=== PATIENT | female | born 1970 | race American Indian/Alaskan Native ===

== ENCOUNTER 2016-12-02 02:54 | Emergency (ER) | payer BC, OTHER ==
[2016-12-02 03:01] VITALS: BP 138/89
[2016-12-02] MEDS ORDERED: Promethazine 25 MG/ML SDV IM ONE (03:02)
[2016-12-02] MEDS ORDERED: Butorphanol 2 MG/ML SDV IM ONE (03:02)
--- NOTE | 2016-12-02 03:17 | EDM.PDOC ---
ED HPI HEADACHE COMPLAINT - General Chief Complaint: Headache Stated Complaint: MIGRAINE Time Seen by Provider: 12/02/16 03:05 Source of Information: Reports: Patient History Limitations: Reports: No limitations - History of Present Illness INITIAL COMMENTS - FREE TEXT/NARRATIVE: c/o usual migraine headache since friday up back of head and left side, nasuea no vomiting. Tiggered by activity with grandkids. Has tried Maxalt and excedrine migraine without relief. Timing/Duration: Reports: day(s): Location: Reports: occipital, parietal, left Severity: Reports: similar to past headaches Context: Reports: other - Related Data Allergies/ADRs: Allergies Allergy/AdvReac Type Severity Reaction Status Date / Time morphine Allergy Difficulty Verified 12/02/16 02:57 Breathing prochlorperazine edisylate Allergy Difficulty Verified 12/02/16 02:57 [From Compazine] Breathing prochlorperazine maleate Allergy Difficulty Verified 12/02/16 02:57 [From Compazine] Breathing sumatriptan [From Imitrex] Allergy Chest Pain Verified 12/02/16 02:57 sumatriptan succinate Allergy Chest Pain Verified 12/02/16 02:57 [From Imitrex] Home Meds: Home Meds Metoprolol Tartrate 100 mg PO DAILY 08/01/13 [History] Rizatriptan [Maxalt DRILLING SUPERVISOR] 10 mg PO ASDIRECTED PRN 08/01/13 [History] metFORMIN [metFORMIN XR] 250 mg PO BIDM 08/01/13 [History] Acetaminophen/Caffeine [Excedrin Tension Headache] 2 tab PO ASDIRECTED PRN 07/17 [History] diphenhydrAMINE [Benadryl] 50 mg PO ASDIRECTED PRN 07/17/14 [History] atorvaSTATin Calcium [Atorvastatin Calcium] 20 mg PO DAILY 08/05/14 [History] Lisinopril 20 mg PO DAILY 10/08/14 [History] Past Medical History - Past Health History Medical/Surgical History: Denies Medical/Surgical History HEENT History: Reports: None Cardiovascular History: Reports: High cholesterol, Hypertension Respiratory History: Reports: Other (see below) Other Respiratory History: uses C-PAP Gastrointestinal History: Reports: None Genitourinary History: Reports: Renal calculus 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: , Other (see below) Other OB/BYN History: 2 c-sect Musculoskeletal History: Reports: None Neurological History: Reports: Migraines Psychiatric History: Reports: None Endocrine/Metabolic History: Reports: Diabetes, type II Hematologic History: Reports: None Immunologic History: Reports: None Oncologic (Cancer) History: Reports: None Dermatologic History: Reports: None - Infectious Disease History Infectious Disease History: Reports: Chicken pox - Past Surgical History HEENT Surgical History: Reports: None Cardiovascular Surgical History: Reports: None GI Surgical History: Reports: Appendectomy, Cholecystectomy Female Surgical History: Reports: section, Hysterectomy Other Female Surgeries/Procedures: Partial Musculoskeletal Surgical History: Reports: None Social & Family History - Family History Family Medical History: Noncontributory - Tobacco Use Smoking Status *Q: Current Every Day Smoker Years of Tobacco use: 20 Packs/Tins Daily: 0.3 Used Tobacco, but Quit: No Month Tobacco Last Used: january Second Hand Smoke Exposure: Yes - Caffeine Use Caffeine Use: Reports: Soda - Alcohol Use Days Per Week of Alcohol Use: 0 - Recreational Drug Use Recreational Drug Use: No Drug Use in Last 12 Months: No ED ROS GENERAL - Review of Systems Review Of Systems: See Below Constitutional: Reports: no symptoms HEENT: Reports: No symptoms, Other (sensitive to lights.) Respiratory: Reports: No Symptoms Cardiovascular: Reports: No symptoms GI/Abdominal: Reports: Nausea. Denies: Vomiting Neurological: Reports: Headache - Physical Exam Exam: See Below Exam Limited By: No limitations General Appearance: alert, mild distress Eye Exam: bilateral eye: EOMI, PERRL Ears: normal external exam Nose: normal inspection Throat/Mouth: Normal inspection Head Exam: atraumatic, normocephalic Neck: normal inspection, supple, non-tender, full range of motion Respiratory/Chest: no respiratory distress, lungs clear Cardiovascular: normal peripheral pulses, regular rate, rhythm Neuro Exam (Abbreviated): alert, oriented, normal cognition, no motor/sensory deficits Back Exam: full range of motion Psychiatric: normal affect, normal mood Skin Exam: Warm, Dry, Intact, Normal color Course - Vital Signs Last Recorded V/S: Last Vital Signs Temp 96.6 F 12/02/16 02:59 Pulse 117 H 12/02/16 02:59 Resp 18 12/02/16 02:59 BP 138/89 12/02/16 02:59 Pulse Ox 98 12/02/16 02:59 - Orders/Labs/Meds Meds: Medications Discontinued Medications Generic Name Dose Route Start Last Admin Trade Name Iman PRN Reason Stop Dose Admin Butorphanol Tartrate 2 mg 12/02/16 03:02 12/02/16 03:13 Stadol IM 12/02/16 03:03 2 mg ONETIME ONE Administration Promethazine HCl 25 mg 12/02/16 03:02 12/02/16 03:13 Phenergan IM 12/02/16 03:03 25 mg ONETIME ONE Administration Departure - Departure Time of Disposition: 03:25 Disposition: Home, Self-Care 01 Condition: good Clinical Impression: Migraine Instructions: Recurrent Migraine Headache, [id number] Forms: ED Department Discharge Additional Instructions: rest increase fluids follow up as needed
== END 2016-12-02 03:26 | disposition home or self-care (01) ==
LOC: DL.ED 02:54
DX: G43.909 Migraine, unspecified, not intractable, without status migrainosus (principal); E78.00 Pure hypercholesterolemia, unspecified; I10 Essential (primary) hypertension; E11.9 Type 2 diabetes mellitus without complications; F17.210 Nicotine dependence, cigarettes, uncomplicated; Z79.84 Long term (current) use of oral hypoglycemic drugs; Z79.899 Other long term (current) drug therapy; Z90.49 Acquired absence of other specified parts of digestive tract; Z90.710 Acquired absence of both cervix and uterus; Z88.8 Allergy status to other drugs, medicaments and biological substances
CPT/HCPCS: 96372; 99283; J0595; J2550

== ENCOUNTER 2017-05-11 19:53 | Emergency (ER) | payer SELFPAY ==
[2017-05-11 20:06] VITALS: BP 180/95
[2017-05-11] MEDS ORDERED: Cephalexin 500 MG Cap PO ONE (21:45)
--- NOTE | 2017-05-11 21:45 | EDM.PDOC ---
ED HPI GENERAL MEDICAL PROBLEM - General Chief Complaint: ENT Problem Stated Complaint: BAD HEADACHE,PAIN IN TOOTH [id number] Time Seen by Provider: 05/11/17 21:42 Source of Information: Reports: Patient - History of Present Illness INITIAL COMMENTS - FREE TEXT/NARRATIVE: Tooth pulled on , also sore throat with dental pain and migraine headache. Minimal improvement with tylenol. Noted after tooth pulled foul taste in mouth and bad odor, slight improvement now. 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 CLERK: Reports: Acetaminophen, Other (see below) Other Treatments CUSTOMER SECURITY CLERK: ibuprofen Head Pain Score (Numeric/FACES): 3 - Related Data Allergies Allergy/AdvReac Type Severity Reaction Status Date / Time morphine Allergy Difficulty Verified 05/11/17 19:58 Breathing prochlorperazine edisylate Allergy Difficulty Verified 05/11/17 19:58 [From Compazine] Breathing prochlorperazine maleate Allergy Difficulty Verified 05/11/17 19:58 [From Compazine] Breathing sumatriptan [From Imitrex] Allergy Chest Pain Verified 05/11/17 19:58 sumatriptan succinate Allergy Chest Pain Verified 05/11/17 19:58 [From Imitrex] Home Meds: Home Meds Metoprolol Tartrate 100 mg PO DAILY 08/01/13 [History] Rizatriptan [Maxalt CAR WHACKER] 10 mg PO ASDIRECTED PRN 08/01/13 [History] metFORMIN [metFORMIN XR] 250 mg PO BIDM 08/01/13 [History] Acetaminophen/Caffeine [Excedrin Tension Headache] 2 tab PO ASDIRECTED PRN 07/17 [History] diphenhydrAMINE [Benadryl] 50 mg PO ASDIRECTED PRN 07/17/14 [History] atorvaSTATin Calcium [Atorvastatin Calcium] 20 mg PO DAILY 08/05/14 [History] Lisinopril 20 mg PO DAILY 10/08/14 [History] Past Medical History - Past Health History Medical/Surgical History: Denies Medical/Surgical History HEENT History: Reports: None Cardiovascular History: Reports: High Cholesterol, Hypertension Respiratory History: Reports: Other (See Below) Other Respiratory History: uses C-PAP Gastrointestinal History: Reports: None Genitourinary History: Reports: Renal Calculus 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 OB/BYN History: 2 c-sect Musculoskeletal History: Reports: None Neurological History: Reports: Migraines Psychiatric History: Reports: None Endocrine/Metabolic History: Reports: Diabetes, Type II Hematologic History: Reports: None Immunologic History: Reports: None Oncologic (Cancer) History: Reports: None Dermatologic History: Reports: None - Infectious Disease History Infectious Disease History: Reports: Chicken Pox - Past Surgical History HEENT Surgical History: Reports: None GI Surgical History: Reports: Appendectomy, Cholecystectomy Female Surgical History: Reports: Section, Hysterectomy Musculoskeletal Surgical History: Reports: None Social & Family History - Family History Family Medical History: Noncontributory - Tobacco Use Smoking Status *Q: Current Every Day Smoker Years of Tobacco use: 20 Packs/Tins Daily: 0.4 Used Tobacco, but Quit: No Month Tobacco Last Used: january Second Hand Smoke Exposure: Yes - Caffeine Use Caffeine Use: Reports: Tea - Alcohol Use Days Per Week of Alcohol Use: 0 - Recreational Drug Use Recreational Drug Use: No Drug Use in Last 12 Months: No ED ROS ENT - Review of Systems Review Of Systems: See Below Constitutional: Denies: Fever, Chills HEENT: Reports: Dental Pain, Throat Pain Respiratory: Reports: No Symptoms Cardiovascular: Reports: No Symptoms GI/Abdominal: Reports: Nausea : Reports: No Symptoms Neurological: Reports: Headache ED EXAM, ENT - Physical Exam Exam: See Below Exam Limited By: No Limitations General Appearance: Alert, Mild Distress Eye Exam: Bilateral Eye: PERRL Ears: Normal External Exam, Normal TMs Nose: Normal Inspection Mouth/Throat: Dental Pain, Dental Tenderness, Tonsillar Erythema Head: Atraumatic, Normocephalic Respiratory/Chest: No Respiratory Distress, Lungs Clear, Normal Breath Sounds Cardiovascular: Normal Peripheral Pulses, Regular Rate, Rhythm, No Edema GI/Abdominal: Normal Bowel Sounds (Female) Exam: Normal External Exam Extremities: Normal Inspection, Normal Range of Motion Neurological: Alert, Oriented, Normal Cognition Psychiatric: Normal Affect, Normal Mood Skin: Warm, Dry, Intact, Normal Color Course - Vital Signs Last Recorded V/S: Last Vital Signs Temp 97.8 F 05/11/17 20:04 Pulse 73 05/11/17 20:04 Resp 18 05/11/17 20:04 BP 180/95 H 05/11/17 20:04 Pulse Ox 99 05/11/17 20:04 - Orders/Labs/Meds Meds: Medications Discontinued Medications Generic Name Dose Route Start Last Admin Trade Name Iman PRN Reason Stop Dose Admin Butorphanol Tartrate 1 mg 05/11/17 21:47 05/11/17 21:55 Stadol IM 05/11/17 21:48 1 mg ONETIME ONE Administration Cephalexin 500 mg 05/11/17 21:45 05/11/17 21:54 Keflex PO 05/11/17 21:46 500 mg ONETIME ONE Administration Departure - Departure Time of Disposition: 21:49 Disposition: Home, Self-Care 01 Condition: Fair Clinical Impression: Dental abscess, Migraine URI (upper respiratory infection) Qualifiers: URI type: unspecified viral URI Qualified Code(s): J06.9 - Acute upper respiratory infection, unspecified - Discharge Information Instructions: Dental Car[facility] Forms: ED Department Discharge Additional Instructions: rest keflex 500mg one 4 times daily for one week follow up with dentist this week increase fluids
[2017-05-11] MEDS ORDERED: Butorphanol 2 MG/ML SDV IM ONE (21:47)
== END 2017-05-11 22:14 | disposition home or self-care (01) ==
LOC: DL.ED 19:53
DX: K04.7 Periapical abscess without sinus (principal); G43.909 Migraine, unspecified, not intractable, without status migrainosus; J06.9 Acute upper respiratory infection, unspecified; F17.210 Nicotine dependence, cigarettes, uncomplicated; I10 Essential (primary) hypertension; E78.00 Pure hypercholesterolemia, unspecified; E11.9 Type 2 diabetes mellitus without complications; Z87.442 Personal history of urinary calculi; Z90.49 Acquired absence of other specified parts of digestive tract; Z90.710 Acquired absence of both cervix and uterus; Z79.84 Long term (current) use of oral hypoglycemic drugs; Z79.899 Other long term (current) drug therapy; Z88.5 Allergy status to narcotic agent; Z88.8 Allergy status to other drugs, medicaments and biological substances
CPT/HCPCS: 87081; 87430; 96372; 99282; A9270; J0595

== ENCOUNTER 2017-12-14 22:20 | Emergency (ER) | payer SELFPAY ==
[2017-12-14 22:24] VITALS: BP 178/84
[2017-12-14] MEDS ORDERED: Promethazine 25 MG/ML SDV IM ONE (22:26)
[2017-12-14] MEDS ORDERED: Butorphanol 2 MG/ML SDV IM ONE (22:26)
--- NOTE | 2017-12-14 22:29 | EDM.PDOC ---
ED HPI GENERAL MEDICAL PROBLEM - General Chief Complaint: Headache Stated Complaint: MIGRAINE [id number] Time Seen by Provider: 12/14/17 22:27 Source of Information: Reports: Patient History Limitations: Reports: No Limitations - History of Present Illness INITIAL COMMENTS - FREE TEXT/NARRATIVE: c/o recurrent migraine from usual stress and been working more also. Headache Pain Score (Numeric/FACES): 7 - Related Data Allergies Allergy/AdvReac Type Severity Reaction Status Date / Time morphine Allergy Difficulty Verified 12/14/17 22:28 Breathing prochlorperazine edisylate Allergy Difficulty Verified 12/14/17 22:28 [From Compazine] Breathing prochlorperazine maleate Allergy Difficulty Verified 12/14/17 22:28 [From Compazine] Breathing sumatriptan [From Imitrex] Allergy Chest Pain Verified 12/14/17 22:28 sumatriptan succinate Allergy Chest Pain Verified 12/14/17 22:28 [From Imitrex] Home Meds: Home Meds Metoprolol Tartrate 100 mg PO DAILY 08/01/13 [History] Rizatriptan [Maxalt CONTRACTOR FIELD HAULING] 10 mg PO ASDIRECTED PRN 08/01/13 [History] metFORMIN [metFORMIN XR] 250 mg PO BIDM 08/01/13 [History] Acetaminophen/Caffeine [Excedrin Tension Headache] 2 tab PO ASDIRECTED PRN 07/17 [History] diphenhydrAMINE [Benadryl] 50 mg PO ASDIRECTED PRN 07/17/14 [History] atorvaSTATin Calcium [Atorvastatin Calcium] 20 mg PO DAILY 08/05/14 [History] Lisinopril 20 mg PO DAILY 10/08/14 [History] Past Medical History - Past Health History Medical/Surgical History: Denies Medical/Surgical History HEENT History: Reports: None Cardiovascular History: Reports: High Cholesterol, Hypertension Respiratory History: Reports: Other (See Below) Other Respiratory History: uses C-PAP Gastrointestinal History: Reports: None Genitourinary History: Reports: Renal Calculus 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: Other OB/BYN History: 2 c-sect Musculoskeletal History: Reports: None Neurological History: Reports: Migraines Psychiatric History: Reports: None Endocrine/Metabolic History: Reports: Diabetes, Type II Hematologic History: Reports: None Immunologic History: Reports: None Oncologic (Cancer) History: Reports: None Dermatologic History: Reports: None - Infectious Disease History Infectious Disease History: Reports: Chicken Pox - Past Surgical History HEENT Surgical History: Reports: None GI Surgical History: Reports: Appendectomy, Cholecystectomy Female Surgical History: Reports: Section, Hysterectomy Musculoskeletal Surgical History: Reports: None Social & Family History - Family History Family Medical History: Noncontributory - Tobacco Use Smoking Status *Q: Current Every Day Smoker Years of Tobacco use: 20 Packs/Tins Daily: 0.4 Used Tobacco, but Quit: No Month/Year Tobacco Last Used: january Second Hand Smoke Exposure: Yes - Caffeine Use Caffeine Use: Reports: Tea - Alcohol Use Days Per Week of Alcohol Use: 0 - Recreational Drug Use Recreational Drug Use: No Drug Use in Last 12 Months: No ED ROS GENERAL - Review of Systems Review Of Systems: ROS reveals no pertinent complaints other than HPI. - Physical Exam Exam: See Below Exam Limited By: No Limitations General Appearance: Alert, WD/WN, Mild Distress, Other (tearful) Eye Exam: Bilateral Eye: PERRL (pupils ER @ 4mm) Ears: Hearing Grossly Normal Throat/Mouth: Normal Voice, No Airway Compromise Head Exam: Atraumatic Neck: Non-Tender, Full Range of Motion Respiratory/Chest: No Respiratory Distress Cardiovascular: Regular Rate, Rhythm GI/Abdominal: Soft, Non-Tender Neuro Exam (Abbreviated): Alert, Oriented, Normal Cognition, Normal Gait, No Motor/Sensory Deficits Psychiatric: Tearful Skin Exam: Warm, Dry, Normal Color Course - Vital Signs Last Recorded V/S: Last Vital Signs Temp 36.6 C 12/14/17 22:23 Pulse 78 12/14/17 22:23 Resp 16 12/14/17 22:23 BP 178/84 H 12/14/17 22:23 Pulse Ox 100 12/14/17 22:23 - Orders/Labs/Meds Meds: Medications Discontinued Medications Generic Name Dose Route Start Last Admin Trade Name Freq PRN Reason Stop Dose Admin Butorphanol Tartrate 2 mg 12/14/17 22:26 12/14/17 22:34 Stadol IM 12/14/17 22:27 2 mg ONETIME ONE Administration Promethazine HCl 25 mg 12/14/17 22:26 12/14/17 22:32 Phenergan IM 12/14/17 22:27 25 mg ONETIME ONE Administration Departure - Departure Time of Disposition: 22:50 Disposition: Home, Self-Care 01 Condition: Good Clinical Impression: Migraine without aura, Episodic tension-type headache - Discharge Information Instructions: Recurrent Migraine Headache, [id number] Forms: ED Department Discharge Additional Instructions: 1) rest and sleep as much as possible 2) follow up at clinic 3) recheck as needed
== END 2017-12-14 22:51 | disposition home or self-care (01) ==
LOC: DL.ED 22:20
DX: G44.219 Episodic tension-type headache, not intractable (principal); G43.009 Migraine without aura, not intractable, without status migrainosus; E78.00 Pure hypercholesterolemia, unspecified; I10 Essential (primary) hypertension; E11.9 Type 2 diabetes mellitus without complications; F17.210 Nicotine dependence, cigarettes, uncomplicated; Z88.5 Allergy status to narcotic agent; Z88.8 Allergy status to other drugs, medicaments and biological substances; Z79.899 Other long term (current) drug therapy
CPT/HCPCS: 96372; 99283; J0595; J2550

== ENCOUNTER 2018-01-31 19:32 | Emergency (ER) | payer SELFPAY ==
[2018-01-31 19:42] VITALS: BP 186/97
[2018-01-31] MEDS ORDERED: Butorphanol 2 MG/ML SDV IM ONE (19:52)
[2018-01-31] MEDS ORDERED: Promethazine 25 MG/ML SDV IM ONE (19:52)
--- NOTE | 2018-01-31 19:57 | EDM.PDOC ---
ED HPI GENERAL MEDICAL PROBLEM - General Chief Complaint: Headache Stated Complaint: MIGRAINE Time Seen by Provider: 01/31/18 19:53 Source of Information: Reports: Patient History Limitations: Reports: No Limitations - History of Present Illness INITIAL COMMENTS - FREE TEXT/NARRATIVE: long h/o exac tension migraine with N/V. Head Pain Score (Numeric/FACES): 8 - Related Data Allergies Allergy/AdvReac Type Severity Reaction Status Date / Time morphine Allergy Difficulty Verified 12/14/17 22:28 Breathing prochlorperazine edisylate Allergy Difficulty Verified 12/14/17 22:28 [From Compazine] Breathing prochlorperazine maleate Allergy Difficulty Verified 12/14/17 22:28 [From Compazine] Breathing sumatriptan [From Imitrex] Allergy Chest Pain Verified 12/14/17 22:28 sumatriptan succinate Allergy Chest Pain Verified 12/14/17 22:28 [From Imitrex] Home Meds: Home Meds Metoprolol Tartrate 100 mg PO DAILY 08/01/13 [History] Rizatriptan [Maxalt AMBULANCE DISPATCHER] 10 mg PO ASDIRECTED PRN 08/01/13 [History] metFORMIN [metFORMIN XR] 250 mg PO BIDM 08/01/13 [History] Acetaminophen/Caffeine [Excedrin Tension Headache] 2 tab PO ASDIRECTED PRN 07/17 [History] diphenhydrAMINE [Benadryl] 50 mg PO ASDIRECTED PRN 07/17/14 [History] atorvaSTATin Calcium [Atorvastatin Calcium] 20 mg PO DAILY 08/05/14 [History] Past Medical History - Past Health History Medical/Surgical History: Denies Medical/Surgical History HEENT History: Reports: None Cardiovascular History: Reports: High Cholesterol, Hypertension Respiratory History: Reports: Other (See Below) Other Respiratory History: uses C-PAP Gastrointestinal History: Reports: None Genitourinary History: Reports: Renal Calculus 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 OB/BYN History: 2 c-sect Musculoskeletal History: Reports: None Neurological History: Reports: Migraines Psychiatric History: Reports: None Endocrine/Metabolic History: Reports: Diabetes, Type II Hematologic History: Reports: None Immunologic History: Reports: None Oncologic (Cancer) History: Reports: None Dermatologic History: Reports: None - Infectious Disease History Infectious Disease History: Reports: Chicken Pox - Past Surgical History HEENT Surgical History: Reports: None GI Surgical History: Reports: Appendectomy, Cholecystectomy Female Surgical History: Reports: Section, Hysterectomy Musculoskeletal Surgical History: Reports: None Social & Family History - Family History Family Medical History: Noncontributory - Tobacco Use Smoking Status *Q: Never Smoker - Caffeine Use Caffeine Use: Reports: Tea - Recreational Drug Use Recreational Drug Use: No ED ROS GENERAL - Review of Systems Review Of Systems: ROS reveals no pertinent complaints other than HPI. - Physical Exam Exam: See Below Exam Limited By: No Limitations General Appearance: Alert, WD/WN, Mild Distress, Other (migraine) Eye Exam: Bilateral Eye: PERRL (pupils ER @ 4mm) Ears: Hearing Grossly Normal Throat/Mouth: Normal Voice, No Airway Compromise Head Exam: Atraumatic Neck: Non-Tender, Full Range of Motion Respiratory/Chest: No Respiratory Distress Cardiovascular: Regular Rate, Rhythm GI/Abdominal: Soft, Non-Tender Neuro Exam (Abbreviated): Alert, Oriented, Normal Cognition, Normal Gait, No Motor/Sensory Deficits Psychiatric: Tearful Skin Exam: Warm, Dry, Normal Color Course - Vital Signs Last Recorded V/S: Last Vital Signs Temp 36.7 C 01/31/18 19:41 Pulse 78 01/31/18 19:41 Resp 16 01/31/18 19:41 BP 186/97 H 01/31/18 19:41 Pulse Ox 96 01/31/18 19:41 - Orders/Labs/Meds Orders: Active Orders 24 hr Category Date Time Status Butorphanol [Stadol] Med 01/31/18 19:52 Once 2 mg IM ONETIME ONE Promethazine [Phenergan] Med 01/31/18 19:52 Once 25 mg IM ONETIME ONE Medication Orders Butorphanol Tartrate (Stadol) 2 mg IM ONETIME ONE Stop: 01/31/18 19:53 Promethazine HCl (Phenergan) 25 mg IM ONETIME ONE Stop: 01/31/18 19:53 Meds: Medications Generic Name Dose Route Start Last Admin Trade Name Freq PRN Reason Stop Dose Admin Butorphanol Tartrate 2 mg 01/31/18 19:52 Stadol IM 01/31/18 19:53 ONETIME ONE Promethazine HCl 25 mg 01/31/18 19:52 Phenergan IM 01/31/18 19:53 ONETIME ONE Departure - Departure Time of Disposition: 19:56 Disposition: Home, Self-Care 01 Condition: Good Clinical Impression: Migraine, Tension-type headache - Discharge Information Instructions: Migraine Headache, [id number] Additional Instructions: 1) rest and avoid vigorous activity next 48 hours 2) follow up at clinic - My Orders Last 24 Hours: My Active Orders 01/31/18 19:52 Butorphanol [Stadol] 2 mg IM ONETIME ONE Promethazine [Phenergan] 25 mg IM ONETIME ONE - Assessment/Plan Last 24 Hours: My Active Orders 01/31/18 19:52 Butorphanol [Stadol] 2 mg IM ONETIME ONE Promethazine [Phenergan] 25 mg IM ONETIME ONE
== END 2018-01-31 20:04 | disposition home or self-care (01) ==
LOC: DL.ED 19:32
DX: G44.209 Tension-type headache, unspecified, not intractable (principal); G43.909 Migraine, unspecified, not intractable, without status migrainosus; E78.00 Pure hypercholesterolemia, unspecified; I10 Essential (primary) hypertension; E11.9 Type 2 diabetes mellitus without complications; Z88.5 Allergy status to narcotic agent; Z88.8 Allergy status to other drugs, medicaments and biological substances; Z79.899 Other long term (current) drug therapy; Z79.84 Long term (current) use of oral hypoglycemic drugs
CPT/HCPCS: 96372; 99283; J0595; J2550

== ENCOUNTER 2018-10-19 01:48 | Emergency (ER) | payer SELFPAY | END 2018-10-19 04:00 | disposition left against medical advice (07) | LOC: DL.ED 01:48 | DX: Z53.21 Procedure and treatment not carried out due to patient leaving prior to being seen by health care provider (principal) | CPT/HCPCS: 99281 ==

== ENCOUNTER 2020-04-30 04:20 | Emergency (ER) | payer SELFPAY ==
[2020-04-30 04:27] VITALS: BP 120/84; PULSE 80
[2020-04-30] MEDS ORDERED: Butorphanol 2 MG/ML SDV IM ONE (04:34)
[2020-04-30] MEDS ORDERED: Promethazine 25 MG/ML SDV IM ONE (04:34)
--- NOTE | 2020-04-30 04:38 | EDM.PDOC ---
ED HPI GENERAL MEDICAL PROBLEM - General Chief Complaint: Headache Stated Complaint: MIGRAINE SINCE YESTERDAY Time Seen by Provider: 04/30/20 04:35 Source of Information: Reports: Patient History Limitations: Reports: No Limitations - History of Present Illness INITIAL COMMENTS - FREE TEXT/NARRATIVE: long h/o migraines, present episode since yesterday. 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] 10 mg PO ASDIRECTED PRN 08/01/13 [History] metFORMIN [metFORMIN XR] 500 mg PO BIDM 08/01/13 [History] Acetaminophen/Caffeine [Excedrin Tension Headache] 2 tab PO ASDIRECTED PRN 07/17/14 [History] diphenhydrAMINE [Benadryl] 50 mg PO ASDIRECTED PRN 07/17/14 [History] atorvaSTATin Calcium [Atorvastatin Calcium] 40 mg PO DAILY 08/05/14 [History] Spironolactone [Aldactone] 25 mg PO DAILY 08/29/18 [History] Valsartan 160 mg PO DAILY 08/29/18 [History] Venlafaxine HCl [Venlafaxine ER] 75 mg PO DAILY 08/29/18 [History] Past Medical History - Past Health History Medical/Surgical History: Denies Medical/Surgical History HEENT History: Reports: None Cardiovascular History: Reports: High Cholesterol, Hypertension Respiratory History: Reports: Other (See Below) Other Respiratory History: uses C-PAP Gastrointestinal History: Reports: None Genitourinary History: Reports: Renal Calculus 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 FITTER History: Reports: Other FLASK FITTER History: 2 c-sect Musculoskeletal History: Reports: None Neurological History: Reports: Migraines Psychiatric History: Reports: None Endocrine/Metabolic History: Reports: Diabetes, Type II Hematologic History: Reports: None Immunologic History: Reports: None Oncologic (Cancer) History: Reports: None Dermatologic History: Reports: None - Infectious Disease History Infectious Disease History: Reports: Chicken Pox - Past Surgical History HEENT Surgical History: Reports: None GI Surgical History: Reports: Appendectomy, Cholecystectomy Female Surgical History: Reports: Section, Hysterectomy Musculoskeletal Surgical History: Reports: None Social & Family History - Family History Family Medical History: Noncontributory - Tobacco Use Smoking Status *Q: Current Every Day Smoker Years of Tobacco use: 20 Packs/Tins Daily: 0.3 Second Hand Smoke Exposure: Yes - Caffeine Use Caffeine Use: Reports: Soda - Recreational Drug Use Recreational Drug Use: No ED ROS GENERAL - Review of Systems Review Of Systems: Comprehensive ROS is negative, except as noted in HPI. - Physical Exam Exam: See Below Exam Limited By: No Limitations General Appearance: Alert, WD/WN, Mild Distress, Moderate Distress, Other (discomfort) Eye Exam: Bilateral Eye: PERRL (pupils ER @ 4mm) Ears: Hearing Grossly Normal Throat/Mouth: Normal Voice, No Airway Compromise Head Exam: Atraumatic Neck: Non-Tender, Full Range of Motion Respiratory/Chest: No Respiratory Distress Cardiovascular: Regular Rate, Rhythm GI/Abdominal: Soft, Non-Tender (Female) Exam: Deferred Rectal (Female) Exam: Deferred Neuro Exam (Abbreviated): Alert, Oriented, Normal Cognition, Normal Gait, No Motor/Sensory Deficits Psychiatric: Tearful Skin Exam: Warm, Dry, Normal Color Course - Vital Signs Last Recorded V/S: Last Vital Signs Temp 36.1 C 04/30/20 04:23 Pulse 80 04/30/20 04:23 Resp 16 04/30/20 04:23 BP 120/84 04/30/20 04:23 Pulse Ox 98 04/30/20 04:23 - Orders/Labs/Meds Orders: Active Orders 24 hr Category Date Time Status Butorphanol [Stadol] Med 04/30/20 04:34 Once 2 mg IM ONETIME ONE Promethazine [Phenergan] Med 04/30/20 04:34 Once 25 mg IM ONETIME ONE Medication Orders Butorphanol Tartrate (Stadol) 2 mg IM ONETIME ONE Stop: 04/30/20 04:35 Promethazine HCl (Phenergan) 25 mg IM ONETIME ONE Stop: 04/30/20 04:35 Meds: Medications Generic Name Dose Route Start Last Admin Trade Name Iman RODRIGUEZ Reason Stop Dose Admin Butorphanol Tartrate 2 mg 04/30/20 04:34 Stadol IM 04/30/20 04:35 ONETIME ONE Promethazine HCl 25 mg 04/30/20 04:34 Phenergan IM 04/30/20 04:35 ONETIME ONE Departure - Departure Time of Disposition: 04:37 Disposition: Home, Self-Care 01 Condition: Good Clinical Impression: Migraine with aura - Discharge Information Instructions: Migraine Headache, [id number] Additional Instructions: 1) rest 2) avoid bright lights and loud noises 3) follow up at clinic Sepsis Event Note (ED) - Evaluation Sepsis Screening Result: No Definite Risk - Focused Exam Vital Signs: Vital Signs Temp Pulse Resp BP Pulse Ox 04/30/20 04:23 36.1 C 80 16 120/84 98 - My Orders Last 24 Hours: My Active Orders 04/30/20 04:34 Butorphanol [Stadol] 2 mg IM ONETIME ONE Promethazine [Phenergan] 25 mg IM ONETIME ONE - Assessment/Plan Last 24 Hours: My Active Orders 04/30/20 04:34 Butorphanol [Stadol] 2 mg IM ONETIME ONE Promethazine [Phenergan] 25 mg IM ONETIME ONE
== END 2020-04-30 04:56 | disposition home or self-care (01) ==
LOC: DL.ED 04:20
DX: G43.109 Migraine with aura, not intractable, without status migrainosus (principal); I10 Essential (primary) hypertension; E78.00 Pure hypercholesterolemia, unspecified; E11.9 Type 2 diabetes mellitus without complications; F17.210 Nicotine dependence, cigarettes, uncomplicated; Z88.5 Allergy status to narcotic agent; Z88.8 Allergy status to other drugs, medicaments and biological substances; Z79.84 Long term (current) use of oral hypoglycemic drugs; Z79.899 Other long term (current) drug therapy
CPT/HCPCS: 96372; 99283; J0595; J2550

== ENCOUNTER 2020-08-06 02:45 | Emergency (ER) | payer SELFPAY ==
[2020-08-06] MEDS ORDERED: Promethazine 25 MG/ML SDV IM ONE (02:49)
[2020-08-06] MEDS ORDERED: Butorphanol 2 MG/ML SDV IM ONE (02:49)
--- NOTE | 2020-08-06 02:51 | EDM.PDOC ---
ED HPI GENERAL MEDICAL PROBLEM - General Chief Complaint: Headache Stated Complaint: MIGRAINE Time Seen by Provider: 08/06/20 02:49 Source of Information: Reports: Patient History Limitations: Reports: No Limitations - History of Present Illness INITIAL COMMENTS - FREE TEXT/NARRATIVE: recurrent h/o migraines Headache Pain Score (Numeric/FACES): 8 - Related Data Allergies Allergy/AdvReac Type Severity Reaction Status Date / Time morphine Allergy Difficulty Verified 08/06/20 02:51 Breathing prochlorperazine edisylate Allergy Difficulty Verified 08/06/20 02:51 [From Compazine] Breathing prochlorperazine maleate Allergy Difficulty Verified 08/06/20 02:51 [From Compazine] Breathing sumatriptan [From Imitrex] Allergy Chest Pain Verified 08/06/20 02:51 sumatriptan succinate Allergy Chest Pain Verified 08/06/20 02:51 [From Imitrex] Home Meds: Home Meds 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 PREPARER] 10 mg PO ASDIRECTED PRN 08/01/13 [History] metFORMIN [metFORMIN XR] 500 mg PO BIDM 08/01/13 [History] Acetaminophen/Caffeine [Excedrin Tension Headache] 2 tab PO ASDIRECTED PRN 07/17/14 [History] diphenhydrAMINE [Benadryl] 50 mg PO ASDIRECTED PRN 07/17/14 [History] atorvaSTATin Calcium [Atorvastatin Calcium] 40 mg PO DAILY 08/05/14 [History] Spironolactone [Aldactone] 25 mg PO DAILY 08/29/18 [History] Valsartan 160 mg PO DAILY 08/29/18 [History] Venlafaxine HCl [Venlafaxine ER] 75 mg PO DAILY 08/29/18 [History] Past Medical History - Past Health History Medical/Surgical History: Denies Medical/Surgical History HEENT History: Reports: None Cardiovascular History: Reports: High Cholesterol, Hypertension Respiratory History: Reports: Other (See Below) Other Respiratory History: uses C-PAP Gastrointestinal History: Reports: None Genitourinary History: Reports: Renal Calculus 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 PAVING BED MAKER History: 2 c-sect Musculoskeletal History: Reports: None Neurological History: Reports: Migraines Psychiatric History: Reports: None Endocrine/Metabolic History: Reports: Diabetes, Type II Hematologic History: Reports: None Immunologic History: Reports: None Oncologic (Cancer) History: Reports: None Dermatologic History: Reports: None - Infectious Disease History Infectious Disease History: Reports: Chicken Pox - Past Surgical History HEENT Surgical History: Reports: None GI Surgical History: Reports: Appendectomy, Cholecystectomy Female Surgical History: Reports: Section, Hysterectomy Musculoskeletal Surgical History: Reports: None Social & Family History - Family History Family Medical History: No Pertinent Family History - Caffeine Use Caffeine Use: Reports: Soda ED ROS GENERAL - Review of Systems Review Of Systems: Comprehensive ROS is negative, except as noted in HPI. - Physical Exam Exam: See Below Exam Limited By: No Limitations General Appearance: Alert, WD/WN, Mild Distress, Moderate Distress, Other (tearful) Eye Exam: Bilateral Eye: PERRL (pupils ER @ 4mm, photophobic) Ears: Hearing Grossly Normal Throat/Mouth: Normal Voice, No Airway Compromise Head Exam: Atraumatic Neck: Non-Tender, Full Range of Motion Respiratory/Chest: No Respiratory Distress Cardiovascular: Regular Rate, Rhythm GI/Abdominal: Soft, Non-Tender (Female) Exam: Deferred Rectal (Female) Exam: Deferred Neuro Exam (Abbreviated): Alert, Oriented, Normal Cognition, Normal Gait, No Motor/Sensory Deficits Psychiatric: Tearful Skin Exam: Warm, Dry, Normal Color Course - Vital Signs Last Recorded V/S: Last Vital Signs Temp 36.8 C 08/06/20 02:53 Pulse 96 08/06/20 02:53 Resp 18 08/06/20 02:53 BP 130/82 08/06/20 02:53 Pulse Ox 98 08/06/20 02:53 - Orders/Labs/Meds Meds: Medications Discontinued Medications Generic Name Dose Route Start Last Admin Trade Name Freq PRN Reason Stop Dose Admin Butorphanol Tartrate 2 mg 08/06/20 02:49 08/06/20 02:56 Stadol IM 08/06/20 02:50 2 mg ONETIME ONE Administration Promethazine HCl 25 mg 08/06/20 02:49 08/06/20 02:56 Phenergan IM 08/06/20 02:50 25 mg ONETIME ONE Administration Departure - Departure Time of Disposition: 03:14 Disposition: Home, Self-Care 01 Condition: Good Clinical Impression: Migraine with aura - Discharge Information Forms: ED Department Discharge Additional Instructions: 1) rest 2) avoid bright light and loud noise 3) follow up at clinic Sepsis Event Note (ED) - Focused Exam Vital Signs: Vital Signs Temp Pulse Resp BP Pulse Ox 08/06/20 02:53 36.8 C 96 18 130/82 98
[2020-08-06 02:56] VITALS: BP 130/82; PULSE 96
== END 2020-08-06 03:23 | disposition home or self-care (01) ==
LOC: DL.ED 02:45
DX: G43.109 Migraine with aura, not intractable, without status migrainosus (principal); E11.9 Type 2 diabetes mellitus without complications; I10 Essential (primary) hypertension; E78.00 Pure hypercholesterolemia, unspecified; Z88.5 Allergy status to narcotic agent; Z88.8 Allergy status to other drugs, medicaments and biological substances; Z79.84 Long term (current) use of oral hypoglycemic drugs; Z90.710 Acquired absence of both cervix and uterus; Z90.49 Acquired absence of other specified parts of digestive tract; Z79.899 Other long term (current) drug therapy
CPT/HCPCS: 96372; 99282; 99283; J0595; J2550